=== PATIENT | female | born 1995 | race American Indian/Alaskan Native ===

== ENCOUNTER 2017-02-17 22:45 | Emergency (ER) | payer OTHER, BC ==
[2017-02-18 00:12] VITALS: BP 136/85
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
[2017-02-18] MEDS: ULTRAM PO ONE (04:03)
== END 2017-02-18 04:10 | disposition home or self-care (01) ==
LOC: ED 22:45
DX: S16.1XXA Strain of muscle, fascia and tendon at neck level, initial encounter (principal); M54.5 Low back pain; V43.52XA Car driver injured in collision with other type car in traffic accident, initial encounter; Y93.9 Activity, unspecified; Y99.9 Unspecified external cause status; Y92.410 Unspecified street and highway as the place of occurrence of the external cause
CPT/HCPCS: 99282